=== PATIENT | female | born 1980 | race Caucasian/White ===

== ENCOUNTER 2016-08-19 09:24 | Emergency (ER) | payer OTHER ==
[2016-08-19 10:39] LABS: MANUAL DIFF NEEDED? NO
[2016-08-19 10:45] LABS: BASO% 0.2 % (0.0-0.8); EOS# 0.06 X1000 (0.0-0.7); HEMOGLOBIN 12.4 g/dL (12.0-16.0); LYMPH# 1.41 X1000 (1.2-3.4); LYMPH% 24.1 % (20.5-51.1); MCH 28.4 PG (27-31); MCHC 33.5 g/dL (33-37); MCV 84.9 FL (81-99); MONO% 10.2 % (1.7-9.3); MPV 10.9 FL (7.4-10.4); NEUT% 64.5 % (42.2-75.2); PLT 205 X1000 (130-400); RBC 4.36 XMIL (4.2-5.4)
--- NOTE | 2016-08-19 10:55 | PROVIDER DOCUMENTATION ---
HPI-Psychological Disorder - General Source: patient, family - History of Present Illness-Psych Onset/Duration: reports: 3 days ago Timing: reports: still present Severity: reports: severe Situational problems related to:: reports: spouse Psychiatric Complaints: reports: depressed, impaired concentration, suicidal ideation Previous psych related hospitalizations?: No Patient arrived by:: private car Similar Symptoms Previously?: Yes Recently seen or treated by another doctor?: Yes <Syd Peña - Last Filed: 08/19/16 17:42> <Sylvie Keen - Last Filed: 08/19/16 19:37> - General Chief Complaint: Psych Stated Complaint: PSYCH/ANXIETY Time Seen by Provider: 08/19/16 09:52 Allergies/Adverse Reactions: Patient Allergies Allergy/AdvReac Type Severity Reaction Status Date / Time No Known Allergies Allergy Verified 08/19/16 11:18 Home Medications: Home Medication List Medication Instructions Recorded Confirmed Last Taken Type Duloxetine [Cymbalta] 30 mg PO QHS 08/19/16 08/19/16 08/17/16 20:00 History Hydrochlorothiazide 25 mg PO DAILY 08/19/16 08/19/16 08/17/16 08:00 History Losartan Potassium 50 mg PO QHS 08/19/16 08/19/16 08/17/16 20:00 History Metformin [Glucophage] 500 mg PO QHS 08/19/16 08/19/16 08/17/16 20:00 History Ondansetron HCl [Zofran] 4 mg PO PRN PRN 08/19/16 08/19/16 Unknown History Pentosan [Elmiron] 100 mg PO QHS 08/19/16 08/19/16 08/17/16 20:00 History Pentosan [Elmiron] 200 mg PO QAM 08/19/16 08/19/16 08/17/16 08:00 History - History of Present Illness-Psych Nature of Presenting Problem: Pt is a 35 yof that was discharged yesterday from [facility] with diagnosis of Seratonin syndrome reports possible adverse medication reactions. Family at bedside reports pt continues to have episodes of panic attacks,bizzare behaviour , memory loss. Reprots Seperated from two weeks ago. Pt denies si or hi. Family reports pt tried jumping out of the vehicle on the way to hospital and while in hospital yesterday pt had to be sedated due to jumping out of bed trying to flee. (Syd Peña) Review of Systems - Adult - REVIEW OF SYSTEMS - ADULT Constitutional: denies: chills, fever, fatique Eyes: reports: no symptoms reported Ears, Nose, Mouth & Throat: reports: no symptoms reported Cardiovascular: denies: chest pain, irregular heart rate, orthopnea Respiratory: reports: no symptoms reported Gastrointestinal: reports: no symptoms reported Genitourinary: reports: no symptoms reported Musculoskeletal: reports: no symptoms reported Integumentary: reports: no symptoms reported Neurological: reports: no symptoms reported Psychiatric: reports: see HPI, depression, emotional problems, panic attacks Endocrine: reports: no symptoms reported Hematologic/Lymphatic: reports: no symptoms reported Allergic/Immunologic: reports: no symptoms reported All Other Systems: Reviewed and Negative <Syd Peña - Last Filed: 08/19/16 17:42> Past History - Adult - PAST MEDICAL HISTORY-ADULT Review of Records: reports: Nursing Assessment Review, Medications Reviewed Major Childhood Illnesses: reports: denies history Cardiovascular: reports: denies history Respiratory: reports: denies history Gastrointestinal: reports: denies history Obstetrical/Gynecological: reports: denies history Genitourinary: reports: denies history Musculoskeletal: reports: denies history Neurological: reports: headaches/migraines Psychiatric: reports: depression Endocrine/Immune: reports: denies history Other Conditions: reports: denies history - FAMILY HISTORY Family History: reviewed, not pertinent <Syd Peña - Last Filed: 08/19/16 17:42> Physical Exam-Psych Focus - Physical Exam-Psych Initial Vital Signs Reviewed: Yes Appearance: other (pt is in a stare and will not speak with physician parents at bedside is doing all the talking for pt). negative: appropriate appearance, appropriate insight Neurological: alert, flat Behavior/Eye Contact/Speech: avoids eye contact. negative: good eye contact, normal speech Neck: full range of motion, normal inspection Respiratory: chest non-tender, lungs clear, normal breath sounds, no pleuratic chest pain, no respiratory distress, no accessory muscle use Cardiovascular: regular rate, rhythm Abdominal Exam: soft, no organomegaly, no pulsatile mass Extremity: normal range of motion, non-tender Integumentary: normal color, normal turgor, warm/dry <Syd Peña - Last Filed: 08/19/16 17:42> Progress - REASSESSMENT Reassessment #1 Time Reassessed: 13:47 (Telescreen from [facility] being done at this time.) Reassessment #2 Time Reassessed: 15:53 (Pt has became irrate screaming and running down the halls. Pt has been given medication and has been restrained.) Reassessment #3 Time Reassessed: 16:25 (Pt has finally calmed down . Waiting on [facility] to find placement for pt.) - EKG 1 Time of EKG reading by physician:: 16:21 EKG Read and Signed by:: Leif Saucedo EKG Interpretation (*Must complete 3 of following elements*): Normal Rate: 90 Rhythm: nsr Kaplan: normal QRS: normal MT Interval: normal - CT/MRI 1 CT Study: Head Impression: Normal Comparison with other Films: no changes CT Results: NO BLOOD NO MASS NO HEMM <Syd Peña - Last Filed: 08/19/16 17:42> <Sylvie Keen - Last Filed: 08/19/16 19:37> - PLAN OF CARE/RESULTS Progress/Plan/Lab Results: Orders Category Date Time Status ACETONE SERUM [CHEM] Stat Lab 08/19/16 10:07 Results ALCOHOL BLOOD Stat Lab 08/19/16 10:07 Received CBC WITH ELECTRONIC DIFF [HEME] Stat Lab 08/19/16 10:07 Completed COMPREHENSIVE METABOLIC PANEL [CHEM] Stat Lab 08/19/16 10:07 Results FREE T4 Stat Lab 08/19/16 10:07 Received TEST-URINE [PREG] Stat Lab 08/19/16 10:02 Uncollected SALICYLATES [TDM] Stat Lab 08/19/16 10:07 Results TSH Stat Lab 08/19/16 10:07 Received URINALYSIS W/POSS RFLX CULT [URINALYSIS] Stat Lab 08/19/16 10:01 Uncollected URINE DRUG SCREEN Stat Lab 08/19/16 10:01 Uncollected VITAMIN B12 Stat Lab 08/19/16 10:07 Received Vital Signs - 24 hr 08/19/16 09:31 Temperature 98.7 F Pulse Rate 105 H Respiratory 20 Rate Blood Pressure 146/95 O2 Sat by Pulse 99 Oximetry Laboratory Tests 08/19/16 08/19/16 08/19/16 10:07 10:07 10:07 WBC 5.86 RBC 4.36 Hgb 12.4 Hct 37.0 MCV 84.9 MCH 28.4 MCHC 33.5 RDW Std Deviation 13.5 Plt Count 205 MPV 10.9 H Immature Gran % (Auto) 0.0 Neut % (Auto) 64.5 Lymph % (Auto) 24.1 [place] % (Auto) 10.2 H Eos % (Auto) 1.0 Baso % (Auto) 0.2 Immature Gran # (Auto) 0.00 Neut # (Auto) 3.78 Lymph # (Auto) 1.41 [place] # (Auto) 0.60 H Eos # (Auto) 0.06 Baso # (Auto) 0.01 Sodium 140 Potassium 3.4 L Chloride 104 Carbon Dioxide 22 L Anion Gap 14 BUN 11 Creatinine 0.6 Estimated GFR/1.73 m2 > 60 BUN/Creatinine Ratio 18 Glucose 102 Calculated Osmolality 279 Calcium 8.4 L Total Bilirubin 0.29 AST 24 ALT 27 Alkaline Phosphatase 115 H Total Protein 6.7 Albumin 3.8 Globulin 2.9 Albumin/Globulin Ratio 1.3 Vitamin B12 TSH Free T4 Salicylates < 3.00 L Plasma/Serum Ethyl Alc Acetone Level NEGATIVE 08/19/16 10:07 WBC RBC Hgb Hct MCV MCH MCHC RDW Std Deviation Plt Count MPV Immature Gran % (Auto) Neut % (Auto) Lymph % (Auto) [place] % (Auto) Eos % (Auto) Baso % (Auto) Immature Gran # (Auto) Neut # (Auto) Lymph # (Auto) [place] # (Auto) Eos # (Auto) Baso # (Auto) Sodium Potassium Chloride Carbon Dioxide Anion Gap BUN Creatinine Estimated GFR/1.73 m2 BUN/Creatinine Ratio Glucose Calculated Osmolality Calcium Total Bilirubin AST ALT Alkaline Phosphatase Total Protein Albumin Globulin Albumin/Globulin Ratio Vitamin B12 1822 H TSH 1.75 Free T4 1.29 Salicylates Plasma/Serum Ethyl Alc Acetone Level Laboratory Tests 08/19/16 08/19/16 08/19/16 09:49 09:49 09:49 WBC RBC Hgb Hct MCV MCH MCHC RDW Std Deviation Plt Count MPV Immature Gran % (Auto) Neut % (Auto) Lymph % (Auto) [place] % (Auto) Eos % (Auto) Baso % (Auto) Immature Gran # (Auto) Neut # (Auto) Lymph # (Auto) [place] # (Auto) Eos # (Auto) Baso # (Auto) Sodium Potassium Chloride Carbon Dioxide Anion Gap BUN Creatinine Estimated GFR/1.73 m2 BUN/Creatinine Ratio Glucose Calculated Osmolality Calcium Total Bilirubin AST ALT Alkaline Phosphatase Total Protein Albumin Globulin Albumin/Globulin Ratio Vitamin B12 TSH Free T4 Urine Source CLEAN CATCH Urine Color YELLOW Urine Turbidity CLEAR Urine pH 6.0 Ur Specific [place] 1.030 Urine Protein TRACE A Ur Glucose (Stick) TRACE Ur Ketones (Stick) 40 A Urine Blood SMALL A Urine Nitrite NEGATIVE Urine Bilirubin NEGATIVE Urobilinogen Dipstick NORMAL Urine Leukocytes NEGATIVE Urine WBC (Auto) <10 Urine RBC (Auto) <10 U Epithel Cells (Auto) >10 A Urine Bacteria (Auto) NEGATIVE Urine Test NEGATIVE Salicylates Urine Opiates Screen NONE DETECTED Ur Oxycodone Screen NONE DETECTED Ur Methadone, Qual NONE DETECTED Ur Barbiturates Screen NONE DETECTED Ur Phencyclidine Scrn NONE DETECTED Ur Amphetamines Screen NONE DETECTED U Benzodiazepines Scrn NONE DETECTED Urine Cocaine Screen NONE DETECTED U Cannabinoids Screen NONE DETECTED Plasma/Serum Ethyl Alc Acetone Level 08/19/16 08/19/16 08/19/16 10:07 10:07 10:07 WBC 5.86 RBC 4.36 Hgb 12.4 Hct 37.0 MCV 84.9 MCH 28.4 MCHC 33.5 RDW Std Deviation 13.5 Plt Count 205 MPV 10.9 H Immature Gran % (Auto) 0.0 Neut % (Auto) 64.5 Lymph % (Auto) 24.1 [place] % (Auto) 10.2 H Eos % (Auto) 1.0 Baso % (Auto) 0.2 Immature Gran # (Auto) 0.00 Neut # (Auto) 3.78 Lymph # (Auto) 1.41 [place] # (Auto) 0.60 H Eos # (Auto) 0.06 Baso # (Auto) 0.01 Sodium 140 Potassium 3.4 L Chloride 104 Carbon Dioxide 22 L Anion Gap 14 BUN 11 Creatinine 0.6 Estimated GFR/1.73 m2 > 60 BUN/Creatinine Ratio 18 Glucose 102 Calculated Osmolality 279 Calcium 8.4 L Total Bilirubin 0.29 AST 24 ALT 27 Alkaline Phosphatase 115 H Total Protein 6.7 Albumin 3.8 Globulin 2.9 Albumin/Globulin Ratio 1.3 Vitamin B12 TSH Free T4 Urine Source Urine Color Urine Turbidity Urine pH Ur Specific [place] Urine Protein Ur Glucose (Stick) Ur Ketones (Stick) Urine Blood Urine Nitrite Urine Bilirubin Urobilinogen Dipstick Urine Leukocytes Urine WBC (Auto) Urine RBC (Auto) U Epithel Cells (Auto) Urine Bacteria (Auto) Urine Test Salicylates < 3.00 L Urine Opiates Screen Ur Oxycodone Screen Ur Methadone, Qual Ur Barbiturates Screen Ur Phencyclidine Scrn Ur Amphetamines Screen U Benzodiazepines Scrn Urine Cocaine Screen U Cannabinoids Screen Plasma/Serum Ethyl Alc Acetone Level NEGATIVE 08/19/16 10:07 WBC RBC Hgb Hct MCV MCH MCHC RDW Std Deviation Plt Count MPV Immature Gran % (Auto) Neut % (Auto) Lymph % (Auto) [place] % (Auto) Eos % (Auto) Baso % (Auto) Immature Gran # (Auto) Neut # (Auto) Lymph # (Auto) [place] # (Auto) Eos # (Auto) Baso # (Auto) Sodium Potassium Chloride Carbon Dioxide Anion Gap BUN Creatinine Estimated GFR/1.73 m2 BUN/Creatinine Ratio Glucose Calculated Osmolality Calcium Total Bilirubin AST ALT Alkaline Phosphatase Total Protein Albumin Globulin Albumin/Globulin Ratio Vitamin B12 1822 H TSH 1.75 Free T4 1.29 Urine Source Urine Color Urine Turbidity Urine pH Ur Specific [place] Urine Protein Ur Glucose (Stick) Ur Ketones (Stick) Urine Blood Urine Nitrite Urine Bilirubin Urobilinogen Dipstick Urine Leukocytes Urine WBC (Auto) Urine RBC (Auto) U Epithel Cells (Auto) Urine Bacteria (Auto) Urine Test Salicylates Urine Opiates Screen Ur Oxycodone Screen Ur Methadone, Qual Ur Barbiturates Screen Ur Phencyclidine Scrn Ur Amphetamines Screen U Benzodiazepines Scrn Urine Cocaine Screen U Cannabinoids Screen Plasma/Serum Ethyl Alc Acetone Level Laboratory Tests 08/19/16 08/19/16 08/19/16 09:49 09:49 09:49 WBC RBC Hgb Hct MCV MCH MCHC RDW Std Deviation Plt Count MPV Immature Gran % (Auto) Neut % (Auto) Lymph % (Auto) [place] % (Auto) Eos % (Auto) Baso % (Auto) Immature Gran # (Auto) Neut # (Auto) Lymph # (Auto) [place] # (Auto) Eos # (Auto) Baso # (Auto) Sodium Potassium Chloride Carbon Dioxide Anion Gap BUN Creatinine Estimated GFR/1.73 m2 BUN/Creatinine Ratio Glucose POC Glucose Calculated Osmolality Calcium Total Bilirubin AST ALT Alkaline Phosphatase Total Protein Albumin Globulin Albumin/Globulin Ratio Vitamin B12 TSH Free T4 Urine Source CLEAN CATCH Urine Color YELLOW Urine Turbidity CLEAR Urine pH 6.0 Ur Specific [place] 1.030 Urine Protein TRACE A Ur Glucose (Stick) TRACE Ur Ketones (Stick) 40 A Urine Blood SMALL A Urine Nitrite NEGATIVE Urine Bilirubin NEGATIVE Urobilinogen Dipstick NORMAL Urine Leukocytes NEGATIVE Urine WBC (Auto) <10 Urine RBC (Auto) <10 U Epithel Cells (Auto) >10 A Urine Bacteria (Auto) NEGATIVE Urine Test NEGATIVE Salicylates Urine Opiates Screen NONE DETECTED Ur Oxycodone Screen NONE DETECTED Ur Methadone, Qual NONE DETECTED Ur Barbiturates Screen NONE DETECTED Ur Phencyclidine Scrn NONE DETECTED Ur Amphetamines Screen NONE DETECTED U Benzodiazepines Scrn NONE DETECTED Urine Cocaine Screen NONE DETECTED U Cannabinoids Screen NONE DETECTED Plasma/Serum Ethyl Alc Acetone Level 08/19/16 08/19/16 08/19/16 10:07 10:07 10:07 WBC 5.86 RBC 4.36 Hgb 12.4 Hct 37.0 MCV 84.9 MCH 28.4 MCHC 33.5 RDW Std Deviation 13.5 Plt Count 205 MPV 10.9 H Immature Gran % (Auto) 0.0 Neut % (Auto) 64.5 Lymph % (Auto) 24.1 [place] % (Auto) 10.2 H Eos % (Auto) 1.0 Baso % (Auto) 0.2 Immature Gran # (Auto) 0.00 Neut # (Auto) 3.78 Lymph # (Auto) 1.41 [place] # (Auto) 0.60 H Eos # (Auto) 0.06 Baso # (Auto) 0.01 Sodium 140 Potassium 3.4 L Chloride 104 Carbon Dioxide 22 L Anion Gap 14 BUN 11 Creatinine 0.6 Estimated GFR/1.73 m2 > 60 BUN/Creatinine Ratio 18 Glucose 102 POC Glucose Calculated Osmolality 279 Calcium 8.4 L Total Bilirubin 0.29 AST 24 ALT 27 Alkaline Phosphatase 115 H Total Protein 6.7 Albumin 3.8 Globulin 2.9 Albumin/Globulin Ratio 1.3 Vitamin B12 TSH Free T4 Urine Source Urine Color Urine Turbidity Urine pH Ur Specific [place] Urine Protein Ur Glucose (Stick) Ur Ketones (Stick) Urine Blood Urine Nitrite Urine Bilirubin Urobilinogen Dipstick Urine Leukocytes Urine WBC (Auto) Urine RBC (Auto) U Epithel Cells (Auto) Urine Bacteria (Auto) Urine Test Salicylates < 3.00 L Urine Opiates Screen Ur Oxycodone Screen Ur Methadone, Qual Ur Barbiturates Screen Ur Phencyclidine Scrn Ur Amphetamines Screen U Benzodiazepines Scrn Urine Cocaine Screen U Cannabinoids Screen Plasma/Serum Ethyl Alc Acetone Level NEGATIVE 08/19/16 08/19/16 10:07 12:52 WBC RBC Hgb Hct MCV MCH MCHC RDW Std Deviation Plt Count MPV Immature Gran % (Auto) Neut % (Auto) Lymph % (Auto) [place] % (Auto) Eos % (Auto) Baso % (Auto) Immature Gran # (Auto) Neut # (Auto) Lymph # (Auto) [place] # (Auto) Eos # (Auto) Baso # (Auto) Sodium Potassium Chloride Carbon Dioxide Anion Gap BUN Creatinine Estimated GFR/1.73 m2 BUN/Creatinine Ratio Glucose POC Glucose 92 Calculated Osmolality Calcium Total Bilirubin AST ALT Alkaline Phosphatase Total Protein Albumin Globulin Albumin/Globulin Ratio Vitamin B12 1822 H TSH 1.75 Free T4 1.29 Urine Source Urine Color Urine Turbidity Urine pH Ur Specific [place] Urine Protein Ur Glucose (Stick) Ur Ketones (Stick) Urine Blood Urine Nitrite Urine Bilirubin Urobilinogen Dipstick Urine Leukocytes Urine WBC (Auto) Urine RBC (Auto) U Epithel Cells (Auto) Urine Bacteria (Auto) Urine Test Salicylates Urine Opiates Screen Ur Oxycodone Screen Ur Methadone, Qual Ur Barbiturates Screen Ur Phencyclidine Scrn Ur Amphetamines Screen U Benzodiazepines Scrn Urine Cocaine Screen U Cannabinoids Screen Plasma/Serum Ethyl Alc Acetone Level (Syd Peña) Laboratory Tests 08/19/16 08/19/16 08/19/16 09:49 09:49 09:49 WBC RBC Hgb Hct MCV MCH MCHC RDW Std Deviation Plt Count MPV Immature Gran % (Auto) Neut % (Auto) Lymph % (Auto) [place] % (Auto) Eos % (Auto) Baso % (Auto) Immature Gran # (Auto) Neut # (Auto) Lymph # (Auto) [place] # (Auto) Eos # (Auto) Baso # (Auto) Sodium Potassium Chloride Carbon Dioxide Anion Gap BUN Creatinine Estimated GFR/1.73 m2 BUN/Creatinine Ratio Glucose POC Glucose Calculated Osmolality Calcium Total Bilirubin AST ALT Alkaline Phosphatase Total Protein Albumin Globulin Albumin/Globulin Ratio Vitamin B12 TSH Free T4 Urine Source CLEAN CATCH Urine Color YELLOW Urine Turbidity CLEAR Urine pH 6.0 Ur Specific [place] 1.030 Urine Protein TRACE A Ur Glucose (Stick) TRACE Ur Ketones (Stick) 40 A Urine Blood SMALL A Urine Nitrite NEGATIVE Urine Bilirubin NEGATIVE Urobilinogen Dipstick NORMAL Urine Leukocytes NEGATIVE Urine WBC (Auto) <10 Urine RBC (Auto) <10 U Epithel Cells (Auto) >10 A Urine Bacteria (Auto) NEGATIVE Urine Test NEGATIVE Salicylates Urine Opiates Screen NONE DETECTED Ur Oxycodone Screen NONE DETECTED Ur Methadone, Qual NONE DETECTED Ur Barbiturates Screen NONE DETECTED Ur Phencyclidine Scrn NONE DETECTED Ur Amphetamines Screen NONE DETECTED U Benzodiazepines Scrn NONE DETECTED Urine Cocaine Screen NONE DETECTED U Cannabinoids Screen NONE DETECTED Plasma/Serum Ethyl Alc Acetone Level 08/19/16 08/19/16 08/19/16 10:07 10:07 10:07 WBC 5.86 RBC 4.36 Hgb 12.4 Hct 37.0 MCV 84.9 MCH 28.4 MCHC 33.5 RDW Std Deviation 13.5 Plt Count 205 MPV 10.9 H Immature Gran % (Auto) 0.0 Neut % (Auto) 64.5 Lymph % (Auto) 24.1 [place] % (Auto) 10.2 H Eos % (Auto) 1.0 Baso % (Auto) 0.2 Immature Gran # (Auto) 0.00 Neut # (Auto) 3.78 Lymph # (Auto) 1.41 [place] # (Auto) 0.60 H Eos # (Auto) 0.06 Baso # (Auto) 0.01 Sodium 140 Potassium 3.4 L Chloride 104 Carbon Dioxide 22 L Anion Gap 14 BUN 11 Creatinine 0.6 Estimated GFR/1.73 m2 > 60 BUN/Creatinine Ratio 18 Glucose 102 POC Glucose Calculated Osmolality 279 Calcium 8.4 L Total Bilirubin 0.29 AST 24 ALT 27 Alkaline Phosphatase 115 H Total Protein 6.7 Albumin 3.8 Globulin 2.9 Albumin/Globulin Ratio 1.3 Vitamin B12 TSH Free T4 Urine Source Urine Color Urine Turbidity Urine pH Ur Specific [place] Urine Protein Ur Glucose (Stick) Ur Ketones (Stick) Urine Blood Urine Nitrite Urine Bilirubin Urobilinogen Dipstick Urine Leukocytes Urine WBC (Auto) Urine RBC (Auto) U Epithel Cells (Auto) Urine Bacteria (Auto) Urine Test Salicylates < 3.00 L Urine Opiates Screen Ur Oxycodone Screen Ur Methadone, Qual Ur Barbiturates Screen Ur Phencyclidine Scrn Ur Amphetamines Screen U Benzodiazepines Scrn Urine Cocaine Screen U Cannabinoids Screen Plasma/Serum Ethyl Alc Acetone Level NEGATIVE 08/19/16 08/19/16 10:07 12:52 WBC RBC Hgb Hct MCV MCH MCHC RDW Std Deviation Plt Count MPV Immature Gran % (Auto) Neut % (Auto) Lymph % (Auto) [place] % (Auto) Eos % (Auto) Baso % (Auto) Immature Gran # (Auto) Neut # (Auto) Lymph # (Auto) [place] # (Auto) Eos # (Auto) Baso # (Auto) Sodium Potassium Chloride Carbon Dioxide Anion Gap BUN Creatinine Estimated GFR/1.73 m2 BUN/Creatinine Ratio Glucose POC Glucose 92 Calculated Osmolality Calcium Total Bilirubin AST ALT Alkaline Phosphatase Total Protein Albumin Globulin Albumin/Globulin Ratio Vitamin B12 1822 H TSH 1.75 Free T4 1.29 Urine Source Urine Color Urine Turbidity Urine pH Ur Specific [place] Urine Protein Ur Glucose (Stick) Ur Ketones (Stick) Urine Blood Urine Nitrite Urine Bilirubin Urobilinogen Dipstick Urine Leukocytes Urine WBC (Auto) Urine RBC (Auto) U Epithel Cells (Auto) Urine Bacteria (Auto) Urine Test Salicylates Urine Opiates Screen Ur Oxycodone Screen Ur Methadone, Qual Ur Barbiturates Screen Ur Phencyclidine Scrn Ur Amphetamines Screen U Benzodiazepines Scrn Urine Cocaine Screen U Cannabinoids Screen Plasma/Serum Ethyl Alc Acetone Level Orders Category Date Time Status Cardiac Monitoring DIRECTED Care 08/19/16 17:48 Active FSBS [Finger Stick Blood Sugar (ED)] DIRECTED Care 08/19/16 17:48 Active Restraint/Seclude Init/Renew V NOW Care 08/19/16 16:07 Active Regular Diet Diet 08/19/16 13:02 Active HEAD W/O CONTRAST [CT] Stat Exams 08/19/16 16:28 Taken ACETONE SERUM [CHEM] Stat Lab 08/19/16 10:07 Completed ALCOHOL BLOOD Stat Lab 08/19/16 10:07 Completed CBC WITH ELECTRONIC DIFF [HEME] Stat Lab 08/19/16 10:07 Completed COMPREHENSIVE METABOLIC PANEL [CHEM] Stat Lab 08/19/16 10:07 Completed FREE T4 Stat Lab 08/19/16 10:07 Completed TEST-URINE [PREG] Stat Lab 08/19/16 09:49 Completed SALICYLATES [TDM] Stat Lab 08/19/16 10:07 Completed TSH Stat Lab 08/19/16 10:07 Completed URINALYSIS W/POSS RFLX CULT [URINALYSIS] Stat Lab 08/19/16 09:49 Completed URINE DRUG SCREEN Stat Lab 08/19/16 09:49 Completed VITAMIN B12 Stat Lab 08/19/16 10:07 Completed Acetaminophen [Tylenol] Med 08/19/16 16:28 Discontinued 1,000 mg PO NOW ONE Diphenhydramine [Benadryl] Med 08/19/16 15:59 Discontinued 25 mg IM NOW ONE Lorazepam [Ativan] Med 08/19/16 15:47 Discontinued 1 mg IM NOW ONE Lorazepam [Ativan] Med 08/19/16 15:59 Discontinued 1 mg IM NOW ONE Potassium Chloride E.r. [Klor-Con] Med 08/19/16 11:32 Discontinued 40 meq PO NOW ONE Water, Sterile Inj [Sterile Water Inj] Med 08/19/16 15:45 Discontinued 1.2 ml INJ NOW ONE Ziprasidone [Geodon] Med 08/19/16 15:45 Discontinued 20 mg IM NOW ONE Vital Signs - 24 hr 08/19/16 08/19/16 08/19/16 09:31 13:02 14:17 Temperature 98.7 F 98.1 F Pulse Rate 105 H 103 H 78 Respiratory 20 18 18 Rate Blood Pressure 146/95 152/111 137/94 O2 Sat by Pulse 99 99 99 Oximetry 08/19/16 08/19/16 16:15 17:23 Temperature 98.0 F Pulse Rate 97 H 94 H Respiratory 18 16 Rate Blood Pressure 143/91 119/73 O2 Sat by Pulse 97 98 Oximetry (Sylvie Keen) Departure - Departure Time of Disposition Order: 14:38 Certified Medical Emergency: Emergent <Syd Peña - Last Filed: 08/19/16 17:42> - Departure Time of Disposition Order: 19:37 Certified Medical Emergency: Emergent <Sylvie Keen - Last Filed: 08/19/16 19:37> - Departure DIAGNOSIS: Suicidal ideations Depression Qualifiers: Depression Type: unspecified Qualified Code(s): F32.9 - Major depressive disorder, single episode, unspecified Disposition: [facility] Condition: Stable Referrals: Caroline Brandt [Primary Care Provider] - Attestation - Scribe Verification/Attestation Scribe:: Syd Peña Acting as Scribe for:: Leif Saucedo Scribe documention review:: This chart was documented by a scribe and accurately reflects the service the provider performed and the decisions made by the provider. - Scribe Verification/Attestation #2 Shift Change Time: 18:00 Scribe Name: Sylvie Keen <Syd Peña - Last Filed: 08/19/16 17:42> - Scribe Verification/Attestation Scribe:: Sylvie Keen Acting as Scribe for:: Leif Saucedo Scribe documention review:: This chart was documented by a scribe and accurately reflects the service the provider performed and the decisions made by the provider. - Scribe Verification/Attestation #2 Shift Change Time: 18:00 Scribe Name: LeonilaSylvie Acting as Scribe for:: Leif Saucedo <Sylvie eKen - Last Filed: 08/19/16 19:37> Physician Attestation - Physician Attestation I, the provider, attest to the following statement:: Leif Saucedo Physician documentation Attestation:: This documentation recorded by the scribe accurately reflects the service I personally performed and the decisions made by me. <Syd Peña - Last Filed: 08/19/16 17:42>
[2016-08-19 10:56] LABS: ACETONE SERUM NEGATIVE (NEGATIVE)
[2016-08-19 11:01] LABS: AGAP 14; ALBUMIN 3.8 g/dL (3.5-5.0); ALKALINE PHOSPHATASE 115 U/L (32-104); BUN 11 mg/dL (8-22); CALCIUM 8.4 mg/dL (8.8-10.2); CHLORIDE 104 mmol/L (98-107); COSMO 279; GOT 24 U/L (10-30); GPT 27 U/L (10-36); POTASSIUM 3.4 mmol/L (3.5-5.1); SODIUM 140 mmol/L (136-145); TCO2 22 mmol/L (25-35); TOTAL BILIRUBIN 0.29 mg/dL (0.20-1.00); TOTAL PROTEIN 6.7 g/dL (6.3-8.3)
[2016-08-19 11:21] LABS: FREE T4 1.29 ng/dL (0.93-1.70)
[2016-08-19] MEDS ORDERED: KLOR-CON PO ONE (11:32)
[2016-08-19 14:00] LABS: URINE CULTURE NEEDED? NO; URINE MICRO REVIEW NEEDED? NO; URINE SOURCE CLEAN CATCH
[2016-08-19 14:05] LABS: BILIRUBIN URINE NEGATIVE (NEGATIVE); BLOOD URINE SMALL (NEGATIVE); COLOR YELLOW; GLUCOSE URINE TRACE mg/dL (NEGATIVE); LEUKOCYTES URINE NEGATIVE (NEGATIVE); NITRITE URINE NEGATIVE (NEGATIVE); PROTEIN URINE TRACE mg/dL (NEGATIVE); TURBIDITY URINE CLEAR (CLEAR); UR EPITHELIAL CELLS >10 /HPF (<10); URINE BACTERIA NEGATIVE /HPF; URINE RBC <10 /HPF (<10); URINE WBC <10 /HPF (<10); UROBILINOGEN URINE NORMAL (NORMAL)
[2016-08-19 14:44] LABS: UR AMPHETAMINES QUAL NONE DETECTED (NONE DETECT); UR BARBITUATES QUAL NONE DETECTED (NONE DETECT); UR BENZODIAZEPIN QUAL NONE DETECTED (NONE DETECT); UR CANNABINOIDS QUAL NONE DETECTED (NONE DETECT); UR COCAINE QUAL NONE DETECTED (NONE DETECT); UR METHADONE QUAL NONE DETECTED (NONE DETECT); UR OPIATES QUAL NONE DETECTED (NONE DETECT); UR OXYCODONE QUAL NONE DETECTED (NONE DETECT); UR PCP QUAL NONE DETECTED (NONE DETECT)
[2016-08-19] MEDS ORDERED: STERILE WATER INJ. INJ ONE (15:45)
[2016-08-19] MEDS ORDERED: GEODON IM ONE (15:45)
[2016-08-19] MEDS ORDERED: ATIVAN IM ONE ×2 (15:47→15:59)
[2016-08-19] MEDS ORDERED: BENADRYL IM ONE (15:59)
[2016-08-19] MEDS ORDERED: TYLENOL PO ONE (16:28)
[2016-08-19 19:44] VITALS: BP 97/76
--- NOTE | 2016-08-20 05:41 | EKG Report ---
Test Performed on : 08/19/2016 4:21:59 PM Test Reason : No Order in [place] Blood Pressure : / mmHG Vent. Rate : 090 BPM Atrial Rate : 090 BPM P-R Int : 158 ms QRS Dur : 088 ms QT Int : 380 ms P-R-T Axes : 042 000 004 degrees QTc Int : 464 ms Normal sinus rhythm. Normal ECG No previous ECGs available Unconfirmed Result
--- NOTE | 2016-08-20 07:19 | Diag Imaging Result Document ---
PROCEDURE NAME: HEAD W/O CONTRAST - 08/19/[address], 08/19/2016: A CT dose reduction protocol was used. COMPARISON: None. FINDINGS: The ventricles and sulci are normal in size and contour. No intracranial mass or hemorrhage. The skull is intact. There is moderate diffuse sinusitis. IMPRESSION: Sinusitis. No acute disease otherwise. [facility]
== END 2016-08-19 19:40 ==
LOC: ED 09:24
DX: F32.9 Major depressive disorder, single episode, unspecified (principal); R45.851 Suicidal ideations; R51 Headache; Z79.899 Other long term (current) drug therapy
CPT/HCPCS: 70450; 80053; 81001; 81025; 82009; 82607; 82948; 84439; 84443; 85025; 93005; G0480; 80320; 80324; 80329; 80345; 80346; 80349; 80353; 80358; 80361; 80365; 83992